=== PATIENT | female | born 1960 | race Caucasian/White ===

== ENCOUNTER 2016-08-15 08:36 | Emergency (ER) | payer MEDICARE, OTHER ==
[2016-08-15 09:07] VITALS: BP 142/85
--- NOTE | 2016-08-15 09:30 | UC ---
Hand/Wrist HPI - HPI Summary HPI Summary: FELL LAST NIGHT AND LANDED ON RIGHT HAND INJURING THUMB. HAS PAIN AND SWELLING. - History Of Current Complaint Chief Complaint: UCUpperExtremity Stated Complaint: THUMB INJURY Time Seen by Provider: 08/15/16 09:24 Hx Obtained From: Patient Onset/Duration: Sudden Onset, Lasting Hours, Still Present Severity Initially: Moderate Severity Currently: Moderate Pain Intensity: 10 - 10/10 IF SHE TRIES TO MOVE IT Pain Scale Used: 0-10 Numeric Character Of Pain: Sharp Aggravating Factor(s): Movement Alleviating: Rest Associated Signs And Symptoms: Positive: Swelling, Redness Related History: Dominant Hand Right - Allergies/Home Medications Allergies/Adverse Reactions: Allergies Allergy/AdvReac Type Severity Reaction Status Date / Time No Known Allergies Allergy Verified 08/15/16 09:07 PMH/Surg Hx/FS Hx/Imm Hx - Additional Past Medical History Additional PMH: MULTIPLE SCLEROSIS Endocrine History Of: Denies: Diabetes, Thyroid Disease Cardiovascular History Of: Reports: Hypertension Denies: Cardiac Disorders, Pacemaker/ICD Respiratory History Of: Denies: COPD, Asthma GI/ History Of: Denies: Ulcer, Renal Disease Other History Of: Negative For: Anticoagulant Therapy - Surgical History Surgical History: Yes Surgery Procedure, Year, and Place: [id number]. 1982-BIOPSY BREAST( BENIGN). 2013-RIGHT WRIST ORIF FOR NON UNION-[facility] - Family History Known Family History: Positive: Hypertension - Social History Alcohol Use: Daily Alcohol Amount: WINE DAILY Substance Use Type: None Smoking Status (MU): Never Smoked Tobacco Have You Smoked in the Last Year: No Review of Systems Constitutional: Negative Skin: Other - REDNESS Respiratory: Negative Cardiovascular: Negative Gastrointestinal: Negative Musculoskeletal: Arthralgia, Decreased ROM, Edema All Other Systems Reviewed And Are Negative: Yes Physical Exam Triage Information Reviewed: Yes Appearance: Well-Appearing, No Pain Distress, Well-Nourished Vital Signs: Initial Vital Signs Temp 98.3 F 08/15/16 09:03 Pulse 78 08/15/16 09:03 Resp 20 08/15/16 09:03 BP 142/85 08/15/16 09:03 Pulse Ox 97 08/15/16 09:03 Vital Signs Reviewed: Yes Eyes: Positive: Conjunctiva Clear ENT: Positive: Hearing grossly normal Neck: Positive: Supple Respiratory: Positive: No respiratory distress, No accessory muscle use Cardiovascular: Positive: Pulses Normal Abdomen Description: Positive: Soft Musculoskeletal: Positive: ROM Limited @ - RIGHT THUMB, Edema @ - RIGHT THUMB - MCP JOINT, Other: - TTP RIGHT 1ST MCP JOINT Neurological: Positive: Alert Psychological: Positive: Normal Response To Family, Age Appropriate Behavior Skin: Negative: rashes Diagnostics - Radiology RIGHT THUMB XRAY Xray Interpretation: No Acute Changes Radiology Interpretation Completed By: Radiologist Hand/Wrist Course/Dx - Differential Dx/Diagnosis Provider Diagnoses: RIGHT THUMB SPRAIN Discharge - Discharge Plan Condition: Stable Disposition: HOME Prescriptions: Acetaminop/Codeine 30 MG TAB* [Tylenol/Codeine 30 MG TAB*] 1 - 2 tab PO Q6H PRN #20 tab MDD 8 PRN Reason: Pain Patient Education Materials: Finger Sprain (ED) Referrals: Yuki Hughes MD [Primary Care Provider] - If Needed Snehal Wilcox MD [Medical Doctor] - If Needed Additional Instructions: XRAY TODAY NEGATIVE FOR FRACTURE OR DISLOCATION. WEAR SPLINT AT NIGHT WHILE ASLEEP AND DURING THE DAY ABLE FOR COMFORT. FOLLOW-UP WITH DR. WILCOX IF YOU ARE NOT IMPROVING EXPECTED OVER THE NEXT 1-2 WEEKS.
[2016-08-15] MEDS ORDERED: Ibuprofen TAB* 600 MG PO ONE (10:00)
--- NOTE | 2016-08-15 10:20 | RAD ---
HISTORY: Fall, pain, swelling, trauma the first digit of right hand COMPARISONS: July 16, 2012, fluoroscopy of the right wrist dated February 14, 2013 VIEWS: 6, Frontal, lateral, and oblique views of the first digit of the right hand FINDINGS: BONE DENSITY: Normal. BONES: The patient is status post internal fixation of the scaphoid bone. This corresponds to the fluoroscopic images dated February 14, 2013. There is no acute displaced fracture or dislocation. 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 ALIGNMENT: There is no dislocation. SOFT TISSUES: Unremarkable. OTHER FINDINGS: None. IMPRESSION: 1. OSTEOARTHRITIS. 2. POSTSURGICAL CHANGE TO THE SCAPHOID. 3. NO ACUTE OSSEOUS INJURY. IF SYMPTOMS PERSIST, RECOMMEND REPEAT IMAGING.
== END 2016-08-15 11:05 | disposition home or self-care (01) ==
LOC: UCEAST 08:36
DX: S63.601A Unspecified sprain of right thumb, initial encounter (principal); M18.9 Osteoarthritis of first carpometacarpal joint, unspecified; F10.99 Alcohol use, unspecified with unspecified alcohol-induced disorder; W19.XXXA Unspecified fall, initial encounter; Y92.9 Unspecified place or not applicable
CPT/HCPCS: 99213; A9270-GY; G0463